=== PATIENT | female | born 1990 | race Hispanic/Latino ===

== ENCOUNTER 2021-08-24 20:26 | Emergency (ER) | payer SELFPAY ==
[2021-08-24 22:26] VITALS: BP 116/72
[2021-08-24] MEDS ORDERED: ACETAMINOPHEN 500 MG TAB PO ONE (23:46)
[2021-08-25] MEDS: IBUPROFEN 600 MG TAB PO ONE (00:07)
[2021-08-25 00:10] LABS: Bilirubin,Urine NEG (Negative); Blood,Urine NEG (Negative); Color,Urine Yellow (Yellow); HCG Qualitative,Urine Negative (Negative); Protein,Urine <15 mg/dL mg/dL (Negative); RBC,Urine < 1.0 /HPF (0.0-6.0); WBC,Urine < 1.0 /HPF (0.0-6.0)
[2021-08-25 00:18] LABS: Amphetamine Screen,Urine PRESUMPTIVE NEGATIVE; Benzodiazepines Screen,Urine PRESUMPTIVE NEGATIVE; Cannabinoid Screen,Urine PRESUMPTIVE NEGATIVE; Cocaine Screen,Urine PRESUMPTIVE NEGATIVE; Methadone Screen,Urine PRESUMPTIVE NEGATIVE; Opiate Screen,Urine PRESUMPTIVE NEGATIVE
--- NOTE | 2021-08-25 00:32 | Cat Scan Report ---
CT HEAD WITHOUT CONTRAST INDICATION / CLINICAL INFORMATION: Head injury - pain. TECHNIQUE: All CT scans at this location are performed using CT dose reduction for ALARA by means of automated e xposure control. COMPARISON: None available. FINDINGS: No acute intracranial hemorrhage. Ventricles are normal in size without midline shift or mass effect. Sinuses are clear. Sella appears normal. Orbits appear normal. Corpus callosum and craniocervical ju nction appear normal. ADDITIONAL FINDINGS: None. IMPRESSION: 1. No acute intracranial abnormality. Signer Name: Rik Meraz MD Signed: 08/25/2021 12:27 AM Workstation Name: [id number]
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
--- NOTE | 2021-08-25 01:19 | XRay Report ---
Right knee 3 views INDICATION: Injury FINDINGS: Alignment appears normal. No acute fracture or dislocation. No joint effusion. Signer Name: Rik Meraz MD Signed: 08/25/2021 1:14 AM Workstation Name: [id number]
== END 2021-08-25 06:00 | disposition home or self-care (01) ==
LOC: ED 20:26
DX: S83.91XA Sprain of unspecified site of right knee, initial encounter (principal); S09.90XA Unspecified injury of head, initial encounter; Z79.899 Other long term (current) drug therapy; V89.2XXA Person injured in unspecified motor-vehicle accident, traffic, initial encounter; Y93.89 Activity, other specified; Y92.89 Other specified places as the place of occurrence of the external cause; Y99.8 Other external cause status
CPT/HCPCS: 70450; 80307; 81001; 81025; 99284